=== PATIENT | male | born 1990 | race Caucasian/White ===

== ENCOUNTER 2018-03-06 23:07 | Emergency (ER) | payer OTHER ==
[~2018-03-06] VITALS: Ht 180.3 cm; Wt 73.5 kg
[~2018-03-06 23:07] MED LIST: METHADONE10 MG PO; NO HOME MEDS; OXYCODONE HCL5 MG PO
[2018-03-07 01:00] VITALS: BP 142/87
[2018-03-07] MEDS ORDERED: MOTRIN600 MG PO (01:10)
[2018-03-07] MEDS ORDERED: AUGMENTIN875 MG PO (01:10)
== END 2018-03-07 01:20 | disposition home or self-care (01) ==
LOC: EME 23:07
DX: H60.11 Cellulitis of right external ear (principal); F17.200 Nicotine dependence, unspecified, uncomplicated
CPT/HCPCS: 87070; 87075; 87077; 87147; 87186; 87205; 99281; 99283